=== PATIENT | male | born 1970 | race Caucasian/White ===

== ENCOUNTER → 2017-10-16 08:30 | Outpatient (CLI) | payer OTHER, SELFPAY ==
--- NOTE | 2017-10-16 08:33 | RAD_ITS ---
STUDY: X-RAY - LUMBAR SPINE REASON FOR EXAM: Male, 47 years old. Pain TECHNIQUE: 5 view(s) of the lumbar spine were obtained. COMPARISON: None FINDINGS: Normal lumbar lordosis. There is no substantial scoliosis. There is a normal alignment of the vertebrae. Normal vertebral bodies. Minimal spurring at the endplates. Normal disc space heights. The soft tissue structures are unremarkable. Degenerative spurring and mild wedge compression of T11 and T12 vertebral bodies, likely nonacute. RAD/L/S Spine Min 4 Views IMPRESSION: Minimal degenerative changes of the lumbar spine. Slight wedge compression of T11 and T12. Electronically Signed: Yoni Menchaca DO at 23:51 EDT Tel [phone], Service support ,
== END ==
PROVIDERS: Family Provider Family Medicine; PCP Family Medicine; Visit Provider Physician Assistant
DX: M54.5 Low back pain (principal)
CPT/HCPCS: 72110

== ENCOUNTER → 2020-07-06 10:06 | Outpatient (CLI) | payer BC, SELFPAY ==
[2020-07-06 08:23] VITALS: BMI 28.5
== END ==
PROVIDERS: PCP Family Medicine; Visit Provider Physician Assistant Surgical
DX: Z20.828 Contact with and (suspected) exposure to other viral communicable diseases (principal)
CPT/HCPCS: 87635; U0003

== ENCOUNTER → 2020-08-28 17:06 | Outpatient (CLI) | payer BC, SELFPAY ==
[2020-07-06 08:23] VITALS: BMI 28.5
[2020-08-28 17:33] LABS: Amylase 57 U/L (25-115); Lipase 182 U/L (73-393)
== END ==
PROVIDERS: PCP Family Medicine; Referring Provider Family Medicine; Visit Provider Family Medicine
DX: R10.11 Right upper quadrant pain (principal); K85.90 Acute pancreatitis without necrosis or infection, unspecified
CPT/HCPCS: 82150; 83690

== ENCOUNTER 2021-08-25 08:30 | Outpatient (RCR) | payer SELFPAY ==
--- NOTE | 2017-12-22 12:30 | DT_ITS ---
This patient was seen during an EMR downtime December 15, 2017 - December 22, 2017. This patient may have a combination of paper and electronic documentation or all paper documentation. All documentation is viewable within the e-chart portion of [facility] for each patient visit.
== END 2021-08-25 19:00 | disposition home or self-care (01) ==
LOC: MASS 08:30
PROVIDERS: Family Provider Family Medicine; PCP Family Medicine
DX: R69 Illness, unspecified (principal)

== ENCOUNTER 2021-10-12 16:15 | Emergency (ER) | payer BC, OTHER, SELFPAY ==
[2021-10-12 16:17] VITALS: BP 137/92; PULSE 66; RESP 15; TEMP 36.2; O2SAT 98; BMI 28.8
--- NOTE | 2021-10-12 16:28 | ED.RN ---
Patient unsure amount of antifreeze that was possibly ingested, vomited 4x prior to arrival and event happened approx 1 hour prior to arrival. Denies shortness of breath, throat or chest burning or pain.
--- NOTE | 2021-10-12 16:39 | EDS_ITS ---
HPI History of Present Illness Chief Complaint: Poisoning Detail of Chief Complaint: Sprayed in the mouth at work with antifreeze Informant: patient Onset/Context/Timing Onset: Today Context: Sudden Onset Current Severity: Mild Maximum Severity: Mild Narrative Narrative: 51-year-old male history of hypertension. 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 He took off a cap on a car and got sprayed in the mouth accidentally with antifreeze. He spit it out immediately. He had some nausea and vomiting. Currently he is nauseated. He denies any other complaints. He felt well prior to the incident. This is a workers comp claim. Prior similar symptoms: No Recent Illness/Hospitalization: No PFSH PFSH Medical History Chest pain COVID-19 history of low back surgery unusual tiredness Home Medications cyclobenzaprine 10 mg tablet 10 mg PO TID PRN #20 tab 10/16/17 [Rx Last Taken Unknown] losartan 25 mg PO DAILY 10/12/21 [History Last Taken Unknown] ondansetron 4 mg PO Q6H PRN #7 tab 10/12/21 [Rx Last Taken Unknown] Allergy/AdvReac Type Severity Reaction Status Date / Time Sulfa (Sulfonamide Allergy Severe Unknown Verified 07/11/21 15:27 Antibiotics) Surgical History History of cholecystectomy Social History Smoking Status: Never smoker alcohol intake: current alcohol intake frequency: a few times a month Alcohol type: beer ROS ROS ED ROS Narrative Nausea and vomiting. Review of Systems ROS Unobtainable: Denies due to encephalopathy Constitutional Constitutional ED: Denies fever(s) Eyes Eyes: Denies change in vision ENT ENT ED: Denies ear pain Cardiovascular Cardiovascular: Denies chest pain Respiratory/Chest Respiratory/Chest: Denies dyspnea Gastrointestinal Gastrointestinal: Reports nausea and vomiting; Denies abdominal pain or diarrhea Genitourinary Genitourinary ED: Denies dysuria Musculoskeletal Musculoskeletal: Denies myalgias Integumentary Denies rash Neurologic Neurologic: Denies headache(s) Psychiatric Psychiatric: Denies depression Endocrine Endocrinology: Denies polyuria Allergic/Immunologic Allergic/Immunologic ED: Denies urticaria EXAM Physical Exam Narrative Exam Narrative: 51-year-old male no acute distress. Vital signs stable afebrile. H EENT exam unremarkable. Moist his membranes. No swelling. Lungs clear to auscultation. Heart regular rhythm no murmur. Abdomen soft nontender nondistended normal bowel sounds no peritoneal signs. Moving all 4 extremities. Neurologic exam normal. Benign exam. Const Vital Signs: 10/12/21 16:17 10/12/21 16:22 Temperature 97.2 F L Temperature Source Temporal Pulse Rate 66 Respiratory Rate 15 Respiratory Effort Normal Respiratory Pattern Normal Blood Pressure 137/92 H Blood Pressure Mean 107 Pulse Ox 98 Oxygen Delivery Method Room Air Positive well nourished and well developed; Negative for obese, cachectic, contractures or unkempt General Appearance ED: well developed and NAD; Negative for unkempt, cachectic, contractures, cyanotic, diaphoretic or pallor Nutritional Appearance: Negative for cachectic or obese HEENT Reports moist mucous membranes Negative for trauma or tenderness Eyes PERRL and EOMs intact bilaterally General Eye ED: Negative for pale conjunctiva or scleral icterus Neck no lymphadenopathy, supple and no JVD General: Negative for tenderness Chest Wall inspection of chest normal and palpation of chest normal Resp normal respiratory effort and clear to auscultation bilaterally Effort and Inspection: Negative for pain with movement Auscultation: Negative for rales, rhonchi or wheezes Cardio regular rate, regular rhythm, S1 normal heart sound, S2 normal heart sound and no murmurs GI normal to inspection, nondistended, normoactive bowel sounds, non-tender, non- distended and no masses Inspection: Negative for abdominal distention Auscultation: normoactive bowel sounds Palpation: soft; Negative for tender, guarding or rebound tenderness present Back/Spine no CVA tenderness General Back: Negative for CVA tenderness Cervical Spine: Negative for cervical spine tenderness Extremity normal to inspection General Extremety ED: Negative for edema or tenderness General Extremity: Negative for edema Neuro oriented x3 Sensorium / Orientation: alert; Negative for orientation impaired, lethargic or stuporous Motor Exam: strength 5/5 throughout Psych mental status grossly normal Appearance: Negative for unkempt Mood & Affect: Negative for depressed or tearful Skin no rashes or lesions noted and no wounds General Skin Exam: Negative for jaundice or pallor MDM MDM MDM Narrative Medical decision making narrative: 51-year-old male plan accidental of antifreeze that caused him to have nausea and vomiting. It was a very small amount. Not enough to be a toxic ingestion. He will be given Zofran for nausea. This is a workers comp claim. Repeat exam patient doing well at 508. Nausea resolved. He will be discharged home with Zofran prescription as needed. Discharge Plan Triage Chief Complaint: Poisoning ED Provider: Lalit Agustin Dx/Rx/DC Orders Clinical Impression: Exposure to toxic chemical, Nausea & vomiting, Encounter related to worker's compensation claim Instructions: ED Vomiting (Adult) Prescriptions: New ondansetron 4 mg tablet,disintegrating 4 mg PO Q6H PRN (Reason: nausea and vomiting) Qty: 7 RF: 0 No Action cyclobenzaprine 10 mg tablet 10 mg PO TID PRN (Reason: muscle spasm) Qty: 20 RF: 0 losartan 25 mg tablet 25 mg PO DAILY RF: 0 Primary Care Provider: Antelmo Cano Referrals: Antelmo Cano MD [Primary Care Provider] - Activity Restrictions/Additional Instructions: This should resolve without any problem. Zofran as needed for nausea which you may swallow or let dissolve under your tongue. Drink plenty of fluids. Rinse your mouth out thoroughly. Disposition Disposition: Home, Self Care
[2021-10-12] MEDS: Ondansetron ODT 4 MG Tablet PO (16:47)
== END 2021-10-12 17:20 | disposition home or self-care (01) ==
PROVIDERS: Emergency Provider Emergency Medicine; PCP Family Medicine; Visit Provider Emergency Medicine
DX: R11.2 Nausea with vomiting, unspecified (principal); Z77.098 Contact with and (suspected) exposure to other hazardous, chiefly nonmedicinal, chemicals; I10 Essential (primary) hypertension; Z79.899 Other long term (current) drug therapy
CPT/HCPCS: 99283